=== PATIENT | female | born 1955 | race Caucasian/White ===

== ENCOUNTER 2016-08-22 12:12 | Day surgery (SDC) | payer OTHER ==
[~2016-08-22 12:12] MED LIST: CHONDR SULF 4%/HYALURONATE 3% 0.5 ML SYRINGE IO ONE; D5 1/2NS 500 ML IV SCH; EPINEPHRINE 0.5 MG in BALANCED SALT IRRIG SOLN NO.2 500 ML IO ONE; NEO/POLYMYX B SULF/DEXAMETH OP OINT 14 APPLIC/3.5 G TUBE OS ONE; PHENYLEPHRINE HCL 10% 100 GTTS/5 ML BOT SOLN.DROP OS PRN; PROPARACAINE HCL 0.5% 300 GTTS/BOT SOLN.DROP OS ONE
[2016-08-22] MEDS ORDERED: IV START KIT ONE (12:28)
[2016-08-22] MEDS ORDERED: SODIUM CHLORIDE 0.9% 500 ML ONE (12:28)
[2016-08-22] MEDS: PHENYLEPHRINE 2.5% OPHTH 40 GTTS/2 ML BOT SOLN.DROP OS SCH ×2 (12:50→12:59)
[2016-08-22] MEDS: CYCLOPENTOLATE HCL 1% 40 GTTS/2 ML BOT SOLN.DROP OS SCH ×2 (12:51→13:00)
[2016-08-22] MEDS: FLURBIPROFEN SODIUM 0.03% 50 GTTS/2.5 ML BOT SOLN.DROP OS SCH ×2 (12:51→13:00)
[2016-08-22] MEDS ORDERED: MIDAZOLAM HCL 1 MG/ML 2ML VIAL ONE ×2 (13:25→13:59)
[2016-08-22] MEDS ORDERED: POVIDONE-IODINE 5% OPHTH SOLN 600 GTTS/BOT SOLN.DROP ONE (13:41)
--- NOTE | 2016-08-23 08:08 | OP ---
Misty Andres [id number] DATE OF SURGERY: 08/22/2016 SURGEON: Negro Aviles M.D. PREOPERATIVE DIAGNOSIS: Cataract OS. POSTOPERATIVE DIAGNOSIS: Pseudophakia OS. PROCEDURE: Cataract extraction and intraocular lens implantation OS. ANESTHESIA: Monitored anesthesia care. COMPLICATIONS: None. DESCRIPTION: After proper informed consent and brief history and physical performed patient brought to the operating room and placed in the supine position on the operating room table. Patient then prepped and draped in the usual sterile fashion for cataract surgery on the left eye. A clear corneal incision was made using a Keratome blade in the temporal cornea. Non-preserved lidocaine injected into the anterior chamber. Viscoelastic then injected into the anterior chamber. A super sharp blade used to make paracentesis. A bent needle system used to begin capsulorrhexis which was completed Utrata forceps. Balanced salt solution (BSS) on a cannula used to hydrodissect and hydrodelineate the lens, nucleus and cortex. Phacoemulsification hand piece was then used to remove the lens and nucleus using a modified chopping technique. The lens and cortex was removed using the irrigation and aspiration hand piece. Viscoelastic was then injected into the capsular bag. Intraocular lens SN60WF, 22.5 diopter power was then injected in the capsular bag and rotated into place. Viscoelastic was removed using the irrigation and aspiration hand piece. Balanced salt solution (BSS) on a cannula was used to reinflate the anterior chamber. The patient tolerated the procedure well without complication. JOB: [id number]
== END 2016-08-22 14:40 | disposition home or self-care (01) ==
LOC: SDC 12:12
PROVIDERS: ATTEND Ophthalmology
PROC: 08RK3JZ Replacement of Left Lens with Synthetic Substitute, Percutaneous Approach (ICD-10-PCS; principal; 2016-08-22)
DX: H26.9 Unspecified cataract (principal); B00.52 Herpesviral keratitis; I10 Essential (primary) hypertension; F41.9 Anxiety disorder, unspecified; E11.9 Type 2 diabetes mellitus without complications
CPT/HCPCS: 66984; J2250 ×2; J7040; J0171; V2630